=== PATIENT | male | born 1965 | race Caucasian/White ===

== ENCOUNTER 2021-02-04 10:05 | Inpatient (IN) | payer OTHER ==
[~2021-02-04] VITALS: Ht 180.3 cm; Wt 85.3 kg
--- NOTE | 2021-02-04 10:25 | NUR ---
at bedside for assessment
[2021-02-04] MEDS ORDERED: IV NORMAL SALINE 1000 ML BAG IV ONE (10:30)
[2021-02-04] MEDS ORDERED: OXYC30TA2 PO (10:34)
--- NOTE | 2021-02-04 11:00 | NUR ---
Patient placed on isolation for cough while awaiting covid results, family member at bedside for translation and states he does not want to leave the patients side
[2021-02-04 11:11] LABS: HEMATOCRIT 44.7 % (36.7-47.1); MEAN CORPUSCULAR HEMOGLOBIN 29.4 uug (23.8-33.4); MEAN CORPUSCULAR VOLUME 89.1 fL (73.0-96.2); PLATELET COUNT (AUTO) 231 K/uL (152-348)
[2021-02-04] MEDS ORDERED: DILTIAZEM HCL 25 MG IV IV ONE (11:15)
[2021-02-04] MEDS ORDERED: DILTIAZEM HCL 50 MG IV ONE (11:20)
[2021-02-04 11:32] LABS: CREATININE 1.2 mg/dL (0.6-1.3); POTASSIUM 3.8 mmol/L (3.5-5.1)
[2021-02-04 11:38] LABS: BILIRUBIN,DIRECT 0.1 mg/dL (0.0-0.2); BILIRUBIN,TOTAL 0.6 mg/dL (0.2-1.0); TOTAL PROTEIN, SERUM 7.8 g/dL (6.4-8.2)
[2021-02-04] MEDS ORDERED: FUROSEMIDE 40 MG/4 ML VIAL IV ONE (12:00)
[2021-02-04] MEDS ORDERED: FUROSEMIDE 40 MG/4 ML VIAL ONE (12:02)
[2021-02-04] MEDS ORDERED: CEFTRIAXONE 1 G in IV DEXTROSE 5% 50 ML IV ONE (12:15)
--- NOTE | 2021-02-04 12:30 | NUR ---
Report given to MD garcia by ER doctor Kalyan, no signs of acute distress noted
[2021-02-04] MEDS ORDERED: CEFTRIAXONE /D5W 50ML IVPB **ER PYXIS IV ONE (12:32)
[2021-02-04 14:19] VITALS: BP 138/69
--- NOTE | 2021-02-04 14:20 | NUR ---
Patient transferred to CCU bed 4 via ACLS transport, report given to Kathryn SHERMAN
[2021-02-04 14:35] LABS: *BILIRUBIN,URIN NEGATIVE (NEGATIVE); *BLOOD, URINE NEGATIVE (NEGATIVE); *CLARITY,URINE CLEAR (CLEAR); *COLOR,URINE YELLOW (YELLOW); *KETONES,URINE NEGATIVE (NEGATIVE); *UROBILINOGEN,URINE 0.2 E.U./dl (NORMAL); LEUKOCYTE ESTERASE ,URINE NEGATIVE (NEGATIVE); NITRITE, URINE NEGATIVE (NEGATIVE); PH,URINE 5.5 (5.0-8.0); UGLUCOSE NEGATIVE (NEGATIVE)
[2021-02-04] MEDS ORDERED: TEMAZEPAM 15 MG CAPSULE PO PRN (14:45)
[2021-02-04] MEDS ORDERED: ACETAMINOPHEN 325 MG TABLET PO PRN (14:45)
[2021-02-04] MEDS ORDERED: MAGNESIUM HYDROXIDE 30 ML LIQUID UDC PO PRN (14:45)
--- NOTE | 2021-02-04 15:03 | NUR ---
Pt received to CCU bed [address] via [address] at [address]15[address] Dr Pierre notified for orders. Initial assessment completed and documented. MRSA specimen collected. Continuing to monitor. Malathi Herrera RN, BSN
[2021-02-04] MEDS ORDERED: DILTIAZEM HCL CD 240 MG CAP.SR.24H PO SCH (15:30)
[2021-02-04] MEDS: HYDROCODONE/APAP 10-325 MG TABLET PO PRN (15:51)
[2021-02-04] MEDS: ONDANSETRON 4 MG/2 ML VIAL IV PRN (15:51)
[2021-02-04] MEDS ORDERED: AMIODARONE HCL IV 150 MG in IV DEXTROSE 5% 100 ML IV ONE (16:00)
[2021-02-04] MEDS: PIPERACILLIN SODIUM/TAZOBACTAM 3.375 G in IV DEXTROSE 5% 50 ML IV SCH ×2 (16:28→23:23)
[2021-02-04] MEDS: VANCOMYCIN IV 1,250 MG in IV DEXTROSE 5% 250 ML IV SCH (16:37)
[2021-02-04] MEDS: ENOXAPARIN SODIUM 80 MG/0.8 ML DISP.SYRIN SQ SCH ×2 (16:37→23:22)
[2021-02-04] MEDS: AMIODARONE HCL IV 450 MG in IV DEXTROSE 5% 250 ML IV PRN (17:38)
--- NOTE | 2021-02-04 18:58 | NUR ---
Amiodarone gtt started with bolus dose and now 1 mg/delmy x 6 hrs per orders (gtt due to be decreased to 0.5 mg/min at 2340). HR now 90s, pt remains in A-fib, VSS, pt resting with eyes closed. Reporting to nightshift RN.
[2021-02-04 19:00] VITALS: BP 109/79
[2021-02-04] MEDS ORDERED: IV NORMAL SALINE 250 ML IV PRN (19:00)
[2021-02-04 20:00] VITALS: BP_SYST 109; BP_SYST 124; BP_DIAS 79; BP_DIAS 80
[2021-02-04 21:00] VITALS: BP 110/73
[2021-02-04] MEDS: DOCUSATE SODIUM 250 MG CAPSULE PO SCH (21:29)
[2021-02-04 22:00] VITALS: BP 115/73
[2021-02-04 23:00] VITALS: BP 121/78
[2021-02-05] VITALS (26 sets, daily range): BP systolic 113–176; BP diastolic 63–134
--- NOTE | 2021-02-05 02:00 | NUR ---
See strip sheet: few PVC's.
--- NOTE | 2021-02-05 03:30 | NUR ---
SpO2 86% increased O2 6L N/C for 2 hrs. Few nonproductives coughs.
[2021-02-05] MEDS: AMIODARONE HCL IV 450 MG in IV DEXTROSE 5% 250 ML IV PRN ×2 (03:34→15:16)
[2021-02-05] MEDS: VANCOMYCIN IV 1,250 MG in IV DEXTROSE 5% 250 ML IV SCH ×2 (03:37→16:41)
[2021-02-05] MEDS: PIPERACILLIN SODIUM/TAZOBACTAM 3.375 G in IV DEXTROSE 5% 50 ML IV SCH ×4 (04:43→22:36)
[2021-02-05 05:34] LABS: HEMATOCRIT 49.3 % (36.7-47.1); MEAN CORPUSCULAR HEMOGLOBIN 28.2 uug (23.8-33.4); MEAN CORPUSCULAR VOLUME 89.6 fL (73.0-96.2); PLATELET COUNT (AUTO) 239 K/uL (152-348)
[2021-02-05 05:47] LABS: BILIRUBIN,TOTAL 0.5 mg/dL (0.2-1.0); CREATININE 1.3 mg/dL (0.6-1.3); POTASSIUM 3.6 mmol/L (3.5-5.1); TOTAL PROTEIN, SERUM 7.6 g/dL (6.4-8.2)
[2021-02-05 05:55] LABS: THYROID STIMULATING HORMONE 0.539 mIU/mL (0.358-3.740)
[2021-02-05 06:24] LABS: ABG BASE EXCESS 2.3 mmol/L; ABG HCO3 26.7 mmol/L; ABG PCO2 40.8 mmHg (35.0-45.0); ABG PH 7.434 (7.350-7.450); ABG PO2 60.9 mmHg (75.0-100.0); ABG SITE LEFT BRACHIAL; ABG TOTAL HEMOGLOBIN 15.8 G/dL (13.5-18.0); COHb 1.6 % (0.5-1.5); MetHb 0.1 % (0.0-1.5); O2Hb 90.6 % (94.0-97.0); VENT MODE Nasal Cannula
[2021-02-05] MEDS: HYDROCODONE/APAP 10-325 MG TABLET PO PRN ×2 (07:31→14:07)
[2021-02-05] MEDS: PANTOPRAZOLE SODIUM 40 MG TABLET.DR PO SCH (07:31)
[2021-02-05] MEDS: predniSONE 20 MG TABLET PO SCH (08:44)
[2021-02-05] MEDS: ENOXAPARIN SODIUM 80 MG/0.8 ML DISP.SYRIN SQ SCH ×2 (08:48→20:24)
--- NOTE | 2021-02-05 10:38 | NUR ---
Pt was given [place] for pain at 0730 by nightshift RN during report, pt is still c/o pain 12/29. Dr Pierre notified via phone and order placed for morphine. Pt has elevated HR and BP and is sweating on amiodarone gtt 0.5 mg/min and pt remains afebrile. Bed bath given and linens changed. EKG patches changed due to pt profuse sweating and bath. Pt remains tachycardic with SBP 150s. O2 sat 94% on 6L. Dr Monahan aware of pt's oxygenation status. Continuing to monitor. Malathi Herrera RN, BSN
[2021-02-05] MEDS ORDERED: MORPHINE SULFATE 2 MG/1 ML DISP.SYRIN IV PRN ×2 (10:45→11:15)
[2021-02-05] MEDS: DILTIAZEM HCL CD 240 MG CAP.SR.24H PO SCH (10:58)
[2021-02-05] MEDS ORDERED: AZITHROMYCIN IV 500 MG in IV DEXTROSE 5% 250 ML IV SCH (11:00)
[2021-02-05] MEDS ORDERED: hydrALAZINE HCL 20 MG/1 ML VIAL IV PRN (12:00)
[2021-02-05] MEDS ORDERED: AMIODARONE HCL IV 450 MG in IV DEXTROSE 5% 250 ML IV PRN (12:00)
[2021-02-05] MEDS ORDERED: IPRATROPIUM/ALBUTEROL SULFATE 14.7 GM INHALER INH SCH (12:00)
[2021-02-05] MEDS ORDERED: MORPHINE SULFATE 4 MG/1 ML DISP.SYRIN IV PRN (12:30)
[2021-02-05] MEDS ORDERED: LORAZEPAM 2 MG/1 ML VIAL IV PRN ×3 (12:30→15:00)
[2021-02-05] MEDS: IPRATROPIUM BROMIDE 0.5 MG/2.5 ML NEBU NEB SCH ×2 (13:30→20:30)
[2021-02-05] MEDS: ALBUTEROL SULFATE 2.5 MG/3 ML NEBU NEB SCH ×2 (13:30→20:30)
--- NOTE | 2021-02-05 13:48 | NUR ---
Pt exhibiting s/s of opoid withdrawal which is also affecting pt's vital signs. HR tachy, SBP 150s-160s despite amiodarone gtt and cardizem po. Pt is very restless and shaky, diaphoresing with temp WNL, pt states he "just doesn't feel good". Pt is unable to lay still even after Ativan and increased morphine dose given as ordered by Dr Pierre. Product Development Technician ordered to continue Amiodarone gtt for one more day because pt remains in A-fib RVR. Product Development Technician also stated that he believes pt's pain and withdrawal are affecting pt's HR and BP. Hydralazine ordered prn for SBP >160. Continuing to monitor and awaiting Dr Pierre to come assess pt at bedside.
--- NOTE | 2021-02-05 13:56 | NUR ---
Nebulizer treatments not given due to pt isolated for PUI for Covid. Advised by bail attacher Gloria that we cannot nebulize pts with Covid or suspected Covid due to the safety of the unit and not aerosolizing and disseminating the virus throughout the unit. Awaiting Covid PCR results.
[2021-02-05] MEDS: ONDANSETRON 4 MG/2 ML VIAL IV PRN (14:08)
--- NOTE | 2021-02-05 14:23 | NUR ---
Call placed to Dr Pierre at 1423 regarding pt's continued s/s of withdrawal and discomfort. Pt moaning, restless, tachy, elevated BP even after hydralazine given, pt burping and yawning nonstop with some nausea/wretching. Order received for Ativan 1mg every 4 hrs with first dose now.
[2021-02-05] MEDS: HYDROMORPHONE 1 MG/1 ML DISP.SYRIN IV PRN ×3 (14:49→23:03)
--- NOTE | 2021-02-05 14:50 | NUR ---
Pt moaning and restless and now irritable with all prior mentioned s/s of withdrawal. Pt threatening to leave AMA if he cannot have adequate pain control. Dr Pierre notified and orders received for Dilaudid as well as increased dose of ativan.
--- NOTE | 2021-02-05 16:07 | NUR ---
Call placed to Dr Pierre again regarding pt restless and asking for more pain medication. Pt threatening to leave AMA so he can go home and take his oxycodone prescription, but pt remains unstable with A-fib RVR, elevated BP, O2 Sat 90-94% on 4L/NC and Covid PCR results pending. Awaiting return of call from Dr Pierre. Pt is very restless, sweating, nauseous, and c/o pain all over.
--- NOTE | 2021-02-05 16:25 | NUR ---
Dr. Pierre at bedside to assess pt. Discussed pt's heavy smoking history and need for nicotine patch as well as medications to control opoid withdrawal and pain.
[2021-02-05] MEDS: OXYCODONE HCL 5 MG TABLET PO PRN ×2 (16:48→21:12)
[2021-02-05] MEDS: NICOTINE 21 MG/24HR PATCH TD SCH (16:50)
[2021-02-05 17:15] LABS: ABG BASE EXCESS 3.4 mmol/L; ABG HCO3 27.8 mmol/L; ABG PCO2 41.2 mmHg (35.0-45.0); ABG PH 7.447 (7.350-7.450); ABG PO2 99.1 mmHg (75.0-100.0); ABG SITE RIGHT RADIAL; ABG TOTAL HEMOGLOBIN 16.2 G/dL (13.5-18.0); COHb 1.2 % (0.5-1.5); MetHb 0.4 % (0.0-1.5); O2Hb 96.8 % (94.0-97.0); VENT MODE Nasal Cannula
--- NOTE | 2021-02-05 18:37 | NUR ---
Oxycodone given to pt as ordered along with Nicotine patch; pt now resting quietly with BP decreasing to WDL. Continuing to monitor and will report over to nightshift LANE.
--- NOTE | 2021-02-05 19:03 | NUR ---
Dr Pierre notified of ABG results. Pt is still c/o pain and will endorse to Gen SHERMAN for nightshift to follow up.
[2021-02-05] MEDS: DOCUSATE SODIUM 250 MG CAPSULE PO SCH (20:24)
[2021-02-06] VITALS (10 sets, daily range): BP systolic 138–159; BP diastolic 79–104
[2021-02-06] MEDS: ALBUTEROL SULFATE 2.5 MG/3 ML NEBU NEB SCH ×2 (01:30→07:35)
[2021-02-06] MEDS: IPRATROPIUM BROMIDE 0.5 MG/2.5 ML NEBU NEB SCH ×2 (01:30→07:35)
[2021-02-06] MEDS: AMIODARONE HCL IV 450 MG in IV DEXTROSE 5% 250 ML IV PRN (03:21)
[2021-02-06] MEDS: VANCOMYCIN IV 1,250 MG in IV DEXTROSE 5% 250 ML IV SCH (03:54)
[2021-02-06] MEDS: OXYCODONE HCL 5 MG TABLET PO PRN ×2 (03:58→07:36)
[2021-02-06] MEDS: PIPERACILLIN SODIUM/TAZOBACTAM 3.375 G in IV DEXTROSE 5% 50 ML IV SCH (04:32)
[2021-02-06 04:58] LABS: HEMATOCRIT 45.9 % (36.7-47.1); MEAN CORPUSCULAR HEMOGLOBIN 28.7 uug (23.8-33.4); MEAN CORPUSCULAR VOLUME 88.4 fL (73.0-96.2); PLATELET COUNT (AUTO) 297 K/uL (152-348)
[2021-02-06 05:10] LABS: CREATININE 1.2 mg/dL (0.6-1.3); MAGNESIUM 1.9 mg/dL (1.8-2.4); PHOSPHOROUS 2.7 mg/dL (2.5-4.9); POTASSIUM 3.1 mmol/L (3.5-5.1)
[2021-02-06] MEDS: PANTOPRAZOLE SODIUM 40 MG TABLET.DR PO SCH (07:35)
[2021-02-06] MEDS: predniSONE 20 MG TABLET PO SCH (07:44)
[2021-02-06] MEDS: DILTIAZEM HCL CD 240 MG CAP.SR.24H PO SCH (08:06)
[2021-02-06] MEDS: NICOTINE 21 MG/24HR PATCH TD SCH (08:06)
[2021-02-06] MEDS: ENOXAPARIN SODIUM 80 MG/0.8 ML DISP.SYRIN SQ SCH (08:06)
--- NOTE | 2021-02-06 08:07 | NUR ---
Pt c/o pain and severe cough, very agitated. Pt asking what time the doctor will be here and stating he will leave as soon as possible. Attempted to explain to pt that he has a heart condition and is in the ICU and he is not considered stable. In addition to the uncontrolled A-fib, pt's Covid PCR results are not back yet and with being a smoker and taking so many pain medications, he is at high risk for complications. Attempted to call pt's nephew to assist with calming pt down but no answer at phone number provided; message left for nephew to call ICU.
[2021-02-06] MEDS: HYDROMORPHONE 1 MG/1 ML DISP.SYRIN IV PRN (08:22)
--- NOTE | 2021-02-06 08:37 | NUR ---
Pt remains agitated and stated he wants to leave, requested IV taken out. Dr Pierre notified. Per physician, pt can leave AMA but he is not stable for discharge and he will not get a higher dose of pain medication. Pt called nephew Drake, on speaker phone and pt's condition and situation explained by RN. Nephew attempted to speak to pt in [facility] to help him understand his medical condition/health, but pt still agitated and wanting to leave. AMA form brought to pt but pt states that his nephew is coming to the hospital and he will wait for him and not sign the form yet.
[2021-02-06] MEDS ORDERED: DILTIAZEM HCL CD 120 MG CAP.SR.24H PO ONE (08:45)
[2021-02-06] MEDS ORDERED: DILTIAZEM HCL CD 240 MG CAP.SR.24H PO SCH (09:00)
[2021-02-06] MEDS ORDERED: POTASSIUM CHLORIDE 20 MEQ TAB.PRT.SR PO ONE (09:00)
[2021-02-06] MEDS ORDERED: POTASSIUM CHLORIDE 20 MEQ POWDER PACKET GT ONE (09:00)
[2021-02-06] MEDS ORDERED: POTASSIUM CHLORIDE 50 ML IV SCH (09:00)
[2021-02-06] MEDS ORDERED: LOSARTAN POTASSIUM 50 MG TABLET PO SCH (09:00)
--- NOTE | 2021-02-06 09:45 | NUR ---
Pt continued having agitation and opiod and nicotine withdrawal symptoms (tachycardia, nausea, increased RR, elevated BP, profuse sweating/diaphoresis, jittery, hypersensitive to pain/touch) and decided to sign the AMA form. RN explained to patient and his nephew that he was not being discharged and we discussed his health issues and possible complications if he decided to go home. Pt's O2 Sat on 6L/NC was only 94% and A-fib RVR remained uncontrolled with HR 120s. Pt signed AMA form and IV access was removed; pt gathered all belongings, signed belongings form, and was escorted out by security at 0945. Pt was instructed to call 911 and/or return to ED if he needed medical assistance or symptoms continued to be unmanageable at home. Pt's Covid PCR negative and MRSA negative results were called to unit just prior to his departure and pt was informed of his results.
[2021-02-06] MEDS ORDERED: VANCOMYCIN IV 1,000 MG in IV DEXTROSE 5% 250 ML IV SCH (14:00)
[2021-02-07] MEDS ORDERED: DILTIAZEM HCL CD 180 MG CAP.SR.24H PO SCH (09:00)
== END 2021-02-06 09:45 | disposition left against medical advice (07) | DRG 720 ==
LOC: ER 10:05 → ICU 13:46 → CCU 14:03
PROVIDERS: ADMIT Internal Medicine; ATTEND Internal Medicine
DX: A41.9 Sepsis, unspecified organism (principal); J96.01 Acute respiratory failure with hypoxia; N17.0 Acute kidney failure with tubular necrosis; I11.0 Hypertensive heart disease with heart failure; J18.9 Pneumonia, unspecified organism; I50.9 Heart failure, unspecified; I48.0 Paroxysmal atrial fibrillation; F17.210 Nicotine dependence, cigarettes, uncomplicated; G89.4 Chronic pain syndrome; Z20.822 Contact with and (suspected) exposure to COVID-19; J43.9 Emphysema, unspecified; E11.65 Type 2 diabetes mellitus with hyperglycemia; F11.93 Opioid use, unspecified with withdrawal; R65.20 Severe sepsis without septic shock
CPT/HCPCS: 36415; 36600; 70030-TC; 71045; 83605; 83615; 83690; 83735; 84100; 84443; 85025; 85730; 86140; 87086; 93005; A4663; G0378; J0282; J0360; J0456; J0696; J1170; J1650; J1940; J2060; J2270; J2405; J2543; J3370; J3480; J3490; J7030; J7050; J7060; J7512; U0003